=== PATIENT | male | born 1970 | race Hispanic/Latino ===

== ENCOUNTER 2020-09-13 18:07 | Emergency (ER) | payer SELFPAY ==
--- NOTE | ~2020-09-13 | XR_ITS ---
EXAMINATION: XR finger 2nd RT min 2V DATE: 09/13/2020 19:08 INDICATION: Laceration to the tip of the right second digit while cutting meat. TECHNIQUE: Dorsal palmar, lateral and 2 oblique views of the right second digit were obtained COMPARISON: None FINDINGS: There is amputation of the distal margin of the tuft of the right second distal phalanx and surroundi ng soft tissues. No other fractures identified. Alignment and joint spaces in the visualized portions of the right hand are normal. IMPRESSION: 1. Amputation of the tip of the right second digit including the distal cortical margin of the tuft o f the second distal phalanx. Reviewed, dictated and finalized at location A. T FINISHER IMPRESSION: 1. Amputation of the tip of the right second digit including the distal cortica l margin of the tuft of the second distal phalanx.
[2020-09-13 18:15] VITALS: BP 165/82; PULSE 91; RESP 18; TEMP 36.3; O2SAT 97
[2020-09-13] MEDS: TETANUS,DIPHTHERIA,AC PERTUSSIS ADULT (0.5 ML) BOOSTRIX IM (18:58)
[2020-09-13] MEDS: HYDROcodone/acetaminophen (*CRX) 7.5-325 MG TABLET 1 TAB PO (18:59)
--- NOTE | 2020-09-13 20:51 | ED.GENADULT ---
HPI - General Adult General Chief complaint: Wound/Laceration Stated complaint: right finger amputation Time Seen by Provider: 09/13/20 18:29 Source: patient and family Mode of arrival: ambulatory Limitations: language barrier History of Present Illness HPI narrative: Patient is a 50-year-old male who presents with skin avulsion of the left index finger patient was preparing dinner while using the mandolin and sustained a skin avulsion patient notes tetanus not up-to-date moderate aching pain presents due to unable to stop the bleeding denies other complaints Related Data Allergies Allergy/AdvReac Type Severity Reaction Status Date / Time No Known Allergies Allergy Verified 09/13/20 18:17 Review of Systems Review of Systems: All systems reviewed & are unremarkable except as noted in HPI and below PMFSH Past Medical History Medical History (Updated 09/13/20 @ 20:55 by Blake Roberts PA-C) Diabetes mellitus Social History Social History (Updated 09/13/20 @ 20:53 by Blake Roberts PA-C) Smoking status: Never smoker Exam Narrative: Exam Narrative: GENERAL: Well-appearing, well-nourished, and in no acute distress. HEAD: Normocephalic, atraumatic. EYES: PERRLA and EOMI. ENT: Nares clear, no rhinorrhea or epistaxis. Mucous membranes moist. EXTREMITIES: Normal range of motion. No edema. Patient with skin avulsion of the distal tip of the left index finger to the distal nailbed involved no obvious bone extrusion SKIN: Warm, dry, no rash. NEURO: No focal deficits. Alert and oriented x3. Neurovascularly intact. Capillary refill less than 2 sec PSYCH: Normal mood and affect. Course Course Emergency Course: Patient in the room in no distress aware of case findings treatment plan diagnosis Consultations Consultation #1: Discussed case with hand surgeon Dr. Bailon will follow the patient in clinic Date: 09/13/20 Time: 20:55 Vital Signs Vital signs: Vital Signs Temperature 97.3 F L 09/13/20 18:15 Pulse Rate 91 09/13/20 18:15 Respiratory Rate 18 09/13/20 18:15 Blood Pressure 165/82 H 09/13/20 18:15 Pulse Oximetry 97 09/13/20 18:15 Temperature 97.3 F L 09/13/20 18:15 Pulse Rate 91 09/13/20 18:15 Respiratory Rate 18 09/13/20 18:15 Blood Pressure 165/82 H 09/13/20 18:15 Pulse Oximetry 97 09/13/20 18:15 Procedures Other Procedure Procedure 1: Other Procedure: Patient's wound was evaluated LAT was placed on the wound with Surgicel and pressure dressing with hemostasis achieved Medical Decision Making MDM Narrative Medical decision making narrative: Patients injury or pain is consistent with musculoskeletal etiology. No signs of neurological or vascular compromise on exam. Compartments and tisues are soft without signs of compartment syndrome. Pain is felt appropriate for further evaluation on an outpatient basis. Vital Signs Vital Signs: Vital Signs Temperature 97.3 F L 09/13/20 18:15 Pulse Rate 91 09/13/20 18:15 Respiratory Rate 18 09/13/20 18:15 Blood Pressure 165/82 H 09/13/20 18:15 Pulse Oximetry 97 09/13/20 18:15 Temperature 97.3 F L 09/13/20 18:15 Pulse Rate 91 09/13/20 18:15 Respiratory Rate 18 09/13/20 18:15 Blood Pressure 165/82 H 09/13/20 18:15 Pulse Oximetry 97 09/13/20 18:15 Imaging Data Radiologist's impression: ITS Impressions Finger X-Ray 09/13/20 19:13 IMPRESSION: 1. Amputation of the tip of the right second digit including the distal cortical margin of the tuft of the second distal phalanx. Discharge Plan Discharge Clinical Impression: Avulsion of skin Patient Disposition: Home, Self-Care Condition: Stable Instructions: Antibiotic Form, Skin Avulsion (ED) Additional Instructions: Follow-up with plastic surgeon by phone first thing tomorrow to set up for reevaluation take antibiotics as directed. return if symptoms worsen or concerns, any increase in redness swelling pain or
== END 2020-09-13 21:32 | disposition home or self-care (01) ==
PROVIDERS: Emergency Provider Emergency Medicine
DX: S61.200A Unspecified open wound of right index finger without damage to nail, initial encounter (principal); W26.9XXA Contact with unspecified sharp object(s), initial encounter; Z23 Encounter for immunization
CPT/HCPCS: 12001; 73140; 90715; 99283; A9270